=== PATIENT | male | born 1970 | race American Indian/Alaskan Native ===

== ENCOUNTER 2017-12-10 09:48 | Emergency (ER) | payer MEDICARE ==
[2017-12-10 09:49] VITALS: BMI 25.8
[2017-12-10 10:06] VITALS: O2SAT 97
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
[2017-12-10 12:39] VITALS: BP 135/87; PULSE 78; RESP 18; TEMP 98.1
== END 2017-12-10 12:39 | disposition home or self-care (01) ==
LOC: ED 09:48
DX: E10.649 Type 1 diabetes mellitus with hypoglycemia without coma (principal); M54.5 Low back pain; Z87.891 Personal history of nicotine dependence; I10 Essential (primary) hypertension; I50.9 Heart failure, unspecified